=== PATIENT | male | born 1975 | race Caucasian/White ===

== ENCOUNTER 2023-04-21 09:32 | Emergency (ER) | payer BC, SELFPAY ==
--- NOTE | ~2023-04-21 | CT_ITS ---
EXAMINATION: CT abdomen pelvis w con DATE: 04/21/2023 12:16 INDICATION: Right lower quadrant abdominal pain TECHNIQUE: Computed tomography (CT) of the abdomen and pelvis was performed with 100 CC Omnipaque 350 intravenous contrast. Automated exposure control and iterative reconstruction technique were employe d. Exam dose: 801.21 mGy-cm total exam DLP. COMPARISON: None. FINDINGS: The lung bases are clear. Normal heart size. No pericardial or pleural effusion. Hepatic steatosis. Several probable hepatic cysts measuring up to 1.5 cm. The gallbladder is present. No gallbladder wall thickening or pericholecystic fluid or fat stranding. No bile duct or pancreatic duct dilatation. No pancreatic mass lesion or calcification is detected. Normal splenic size. Normal morphology of the adrenal glands. No renal mass lesion or urinary tract calculus or hydroureteronephrosis. The urinary bladder and pros dobbins gland are unremarkable except for some prostate calcifications. Normal caliber of the abdominal aorta. No intraperitoneal or retroperitoneal or pelvic mass lesion or adenopathy or ascites. Normal appendix. No bowel obstruction, bowel wall thickening, pneumatosis or intraperitoneal free air is detected. Small fat-containing umbilical hernia. No suspicious osteolytic or osteoblastic lesions. IMPRESSION: Normal appendix Hepatic cysts. Reviewed, dictated and finalized at [facility]. Reviewed, dictated and finalized at [facility].
[2023-04-21 09:34] VITALS: BP 141/92; PULSE 72; RESP 14; TEMP 37.2; O2SAT 97
--- NOTE | 2023-04-21 10:31 | ED.ABDPAIN ---
HPI - Abdominal Pain General Chief Complaint: Abdominal Pain Stated Complaint: R ABD PAIN [id number] Time Seen by Provider: 04/21/23 10:20 History of Present Illness HPI narrative: 47-year-old male presents to the emergency room today for complaints of right lower quadrant abdominal pain. He has been having the pain off and on for the past 2 weeks. The pain is not severe but he is concerned because it just is not going away. No fever or chills. No nausea or vomiting. Reports that urine and bowels have been normal. Normal appetite. He has never had any abdominal surgeries, still has appendix and gallbladder. Related Data Allergies Allergy/AdvReac Type Severity Reaction Status Date / Time No Known Allergies Allergy Mild Verified 04/21/23 10:19 Review of Systems Review of Systems: CONSTITUTIONAL: Denies fever, chills, or sweats. EYES: Denies visual changes, redness, or discharge. ENT: Denies rhinorrhea, congestion, sore throat, or otalgia. CARDIOVASCULAR: Denies chest pain, palpitations, or edema. RESPIRATORY: Denies cough or dyspnea. GASTROINTESTINAL: As per HPI GENITOURINARY: Denies dysuria or hematuria. SKIN: Denies rash or itching. MUSCULOSKELETAL: Denies back pain, joint pain, or myalgia. NEUROLOGIC: Denies headache, numbness, dizziness, or weakness. PSYCHIATRIC: Denies anxiety or depression. Exam Narrative: GENERAL: Well-appearing, well-nourished, and in no acute distress. HEAD: Normocephalic, atraumatic. EYES: PERRLA and EOMI. NECK: Supple. No adenopathy or masses. CHEST: Clear to auscultation. No respiratory distress. No wheezes rales or rhonchi HEART: Regular rate and rhythm. No murmur heard. Normal peripheral pulses. ABDOMEN: Soft, mild tenderness right mid to lower abdomen, nondistended, normal active bowel sounds. EXTREMITIES: Normal range of motion. No edema. SKIN: Warm, dry, no rash. NEURO: No focal deficits. Alert and oriented x3. PSYCH: Normal mood and affect. Course Vital Signs Vital signs: Vital Signs Temperature 37.2 C 04/21/23 09:34 Pulse Rate 72 04/21/23 09:34 Respiratory Rate 14 04/21/23 09:34 Blood Pressure 141/92 H 04/21/23 09:34 Pulse Oximetry 97 04/21/23 09:34 Oxygen Delivery Room Air 04/21/23 09:34 Temperature 37.2 C 04/21/23 09:34 Pulse Rate 67 04/21/23 12:29 Respiratory Rate 14 04/21/23 12:29 Blood Pressure 146/74 H 04/21/23 12:29 Pulse Oximetry 100 04/21/23 12:29 Oxygen Delivery Room Air 04/21/23 09:34 MDM - Abdominal Pain MDM Narrative Medical decision making narrative: Negative abdominal pain work up Will discharge to home. Lab Data Attestation: I reviewed the patient's lab results. 04/21/23 10:37 04/21/23 12:11 Labs: Lab Results 04/21/23 04/21/23 04/21/23 Range/Units 10:21 10:37 10:42 WBC 5.7 (4.5-10.0) K/mm3 RBC 5.26 (4.6-6.20) M/mm3 Hgb 16.1 (14.0-18.0) g/dL Hct 46.6 (42.0-52.0) % MCV 88.6 (80-100) fl MCH 30.6 (26-34) pg MCHC 34.5 (32-36) g/dl RDW 12.5 (11.5-14.5) % Plt Count 251 (150-375) k/mm3 MPV 8.8 (7.4-10.4) fl Immature Gran % (Auto) 0.3 (0-0.5) % Neut % (Auto) 56.7 (45.5-73.1) % Lymph % (Auto) 30.9 (18.3-44.2) % [place] % (Auto) 8.6 H (2.6-8.5) % Eos % (Auto) 3.0 (0-4.4) % Baso % (Auto) 0.5 (0.2-1.2) % Lymph # (Auto) 1.77 (0.9-3.2) K/mm3 [place] # (Auto) 0.5 (0.1-0.6) K/mm3 Eos # (Auto) 0.2 (0-0.3) K/mm3 Baso # (Auto) 0.0 (0.0-0.1) K/mm3 Abs Immat Gran (auto) 0.02 (0.00-0.031) K/mm3 Absolute Neuts (auto) 3.2 (1.3-6.7) K/mm3 Absolute Nucleated RBC 0.0 (0.0-0.012) K/mm3 Nucleated RBC % 0.0 (0.0-0.2) % Sodium (137-145) mmol/L Potassium (3.4-5.0) mmol/L Chloride (98-107) mmol/L Carbon Dioxide (22-30) mmol/L Anion Gap (8-16) mmol/L BUN (9-20) mg/dL Creatinine (0.7-1.3) mg/dL Estim Creat Clear Calc ml/min Estimated GFR
[2023-04-21 10:45] LABS: Appearance Urine Clear (Clear); Bilirubin Urine Negative (Negative); Blood Urine Negative (Negative); Color Urine Yellow (Yellow); Glucose Urine UA Negative (Negative); Ketones Urine Negative (Negative); Leukocyte Esterase Ur Negative LEU/UL (Negative); Nitrate Urine Negative (Negative); Protein Urine Negative (Negative); Specific Grav Ur 1.007 (1.001-1.035); Urobilinogen Urine 0.2 mg/dL (<2.0); pH Urine 6.5 (5.0-9.0)
[2023-04-21 10:48] LABS: Basophils Percent Auto 0.5 % (0.2-1.2); Eosinophils Absolute Auto 0.2 K/mm3 (0-0.3); Hematocrit 46.6 % (42.0-52.0); Hemoglobin 16.1 g/dL (14.0-18.0); Immature Granulocyte Absolute 0.02 K/mm3 (0.00-0.031); Immature Granulocyte Percent A 0.3 % (0-0.5); Lymphocytes Absolute Auto 1.77 K/mm3 (0.9-3.2); Lymphocytes Percent Auto 30.9 % (18.3-44.2); Mean Corpuscular HGB Conc 34.5 g/dl (32-36); Mean Corpuscular Hemoglobin 30.6 pg (26-34); Mean Corpuscular Volume 88.6 fl (80-100); Mean Platelet Volume 8.8 fl (7.4-10.4); Monocytes Absolute Auto 0.5 K/mm3 (0.1-0.6); Monocytes Percent Auto 8.6 % (2.6-8.5); Neutrophils Absolute Auto 3.2 K/mm3 (1.3-6.7); Neutrophils Percent Auto 56.7 % (45.5-73.1); Platelet Count Result 251 k/mm3 (150-375); Red Blood Count 5.26 M/mm3 (4.6-6.20); Red Cell Distribution Width 12.5 % (11.5-14.5); White Blood Count 5.7 K/mm3 (4.5-10.0)
[2023-04-21 10:50] LABS: Add Urine Microscopic? NO
[2023-04-21 11:00] LABS: Lactic Acid Reflex 1.6 mmol/L (0.7-2.0)
[2023-04-21 12:12] LABS: Estimated CRCL calculation 87 ml/min; Estimated Glomerular Filt Rate > 60
[2023-04-21 12:29] VITALS: BP 146/74; PULSE 67; RESP 14; O2SAT 100
[2023-04-21 12:42] LABS: Alanine Aminotransferase 53 U/L (6-50); Albumin Level 4.2 g/dL (3.5-5.1); Alkaline Phosphatase 53 U/L (38-126); Anion Gap 2 mmol/L (8-16); Aspartate Amino Transferase 39 U/L (17-59); Bilirubin,Total 0.5 mg/dL (0.2-1.3); Blood Urea Nitrogen 12 mg/dL (9-20); Carbon Dioxide 31 mmol/L (22-30); Chloride 104 mmol/L (98-107); Estimated CRCL calculation 95 ml/min; Estimated Glomerular Filt Rate > 60; Glucose 100 mg/dL (65-110); Lipase 63 U/L (23-300); Potassium 4.4 mmol/L (3.4-5.0); Sodium 137 mmol/L (137-145)
== END 2023-04-21 13:09 | disposition home or self-care (01) ==
PROVIDERS: Nurse Practitioner Family; Preventive Medicine Aerospace Medicine; Emergency Provider Emergency Medicine
DX: R10.31 Right lower quadrant pain (principal); K76.89 Other specified diseases of liver
CPT/HCPCS: 36415; 74177; 80053; 81003; 83605; 83690; 85025; 99284; Q9967